=== PATIENT | female | born 1995 | race Caucasian/White ===

== ENCOUNTER 2017-01-28 14:43 | Emergency (ER) | payer MEDICAID ==
[~2017-01-28] VITALS: Ht 157.5 cm; Wt 78.4 kg
[2017-01-28 14:45] VITALS: BP 123/80
[2017-01-28] MEDS ORDERED: HYDROcodone/APAP 5/325 TABLET ONE (15:23)
[2017-01-28] MEDS ORDERED: HYDROcodone/APAP 5/325 TABLET PO ONE (15:30)
== END 2017-01-28 16:28 | disposition home or self-care (01) ==
LOC: ED 15:58
DX: S93.402A Sprain of unspecified ligament of left ankle, initial encounter (principal); S80.02XA Contusion of left knee, initial encounter; S20.212A Contusion of left front wall of thorax, initial encounter; J45.909 Unspecified asthma, uncomplicated; F12.10 Cannabis abuse, uncomplicated; W10.9XXA Fall (on) (from) unspecified stairs and steps, initial encounter; Y93.89 Activity, other specified; Y99.8 Other external cause status; Y92.89 Other specified places as the place of occurrence of the external cause
CPT/HCPCS: 29505

== ENCOUNTER 2017-09-25 21:41 | Emergency (ER) | payer MEDICAID ==
[~2017-09-25] VITALS: Ht 157.5 cm; Wt 82.7 kg
[2017-09-25] MEDS ORDERED: HYDROcodone/APAP 5/325 TABLET ONE (22:29)
[2017-09-25] MEDS: HYDROcodone/APAP 5/325 TABLET PO ONE (22:32)
[2017-09-25 22:51] VITALS: BP 127/79
== END 2017-09-25 22:54 | disposition home or self-care (01) ==
LOC: ED 22:31
DX: K08.89 Other specified disorders of teeth and supporting structures (principal)
CPT/HCPCS: 99283

== ENCOUNTER 2020-09-21 17:02 | Emergency (ER) | payer MEDICAID ==
[~2020-09-21] VITALS: Ht 154.9 cm; Wt 60.7 kg
[2020-09-21] MEDS ORDERED: LORazepam 2 MG/ML, 1ML IVPush PRN ×2 (17:30)
[2020-09-21 17:50] LABS: BASOPHILS % (AUTO) 1 % (0-1); EOSINOPHILS % (AUTO) 0 % (1-7); LYMPHOCYTES % (AUTO) 9 % (22-44); MEAN CORPUSCULAR HEMOGLOBIN 35.6 pg (27.0-34.8); MEAN CORPUSCULAR HGB CONC 34.4 g/dL (32.4-35.8); MEAN PLATELET VOLUME 8.7 fL (7.4-10.4); MONOCYTES % (AUTO) 8 % (2-9); NEUTROPHILS % (AUTO) 84 % (42-75); PLATELET COUNT 250 x10^3/uL (130-400); RED BLOOD COUNT 4.11 x10^6/uL (3.82-5.3); RED CELL DISTRIBUTION WIDTH 15.4 % (9.6-15.2)
[2020-09-21 17:51] LABS: MD NO
[2020-09-21] MEDS ORDERED: ONDANSETRON 2MG/ML, 2ML ONE (17:52)
[2020-09-21] MEDS ORDERED: LORazepam 2 MG/ML, 1ML ONE (17:52)
[2020-09-21 17:54] LABS: ALANINE AMINOTRANSFERASE 85 U/L (12-78); ALBUMIN 5.1 g/dL (3.4-5.0); ANION GAP 19 mmol/L (5-15); CALCIUM 9.3 mg/dL (8.5-10.1); CHLORIDE 88 mmol/L (98-107); CREATININE 2.23 mg/dL (0.55-1.02)
[2020-09-21 17:59] LABS: ALKALINE PHOSPHATASE 130 U/L (45-117); BILIRUBIN,TOTAL 1.7 mg/dL (0.2-1.0); TOTAL PROTEIN 10.3 g/dL (6.4-8.2)
[2020-09-21] MEDS ORDERED: THIAMINE 100 MG in SODIUM CHLORIDE 0.9% 50 ML IVPB ONE (18:00)
[2020-09-21] MEDS ORDERED: ONDANSETRON 2MG/ML, 2ML IVPush ONE (18:00)
[2020-09-21] MEDS ORDERED: SODIUM CHLORIDE 0.9% 1,000ML IVBOLUS ONE (18:00)
[2020-09-21] MEDS ORDERED: SODIUM CHLORIDE FLUSH 10ML SYR IVF ONE (18:30)
[2020-09-21 20:21] VITALS: BP 114/81
== END 2020-09-21 20:45 | disposition home or self-care (01) ==
LOC: ED 20:30
DX: R11.2 Nausea with vomiting, unspecified (principal); F10.139 Alcohol abuse with withdrawal, unspecified; R45.4 Irritability and anger; R00.0 Tachycardia, unspecified; R07.9 Chest pain, unspecified; F17.200 Nicotine dependence, unspecified, uncomplicated; J45.909 Unspecified asthma, uncomplicated; Y90.0 Blood alcohol level of less than 20 mg/100 ml
CPT/HCPCS: 36415; 71045; 80053; 80320; 83690; 84703; 85025; 93005; 96365; 96375; 99285; J2060; J2405; J3411; G0480

== ENCOUNTER 2020-12-22 12:02 | Emergency (ER) | payer MEDICAID ==
[~2020-12-22] VITALS: Ht 157.5 cm; Wt 71.0 kg
[2020-12-22 12:12] VITALS: BP 134/90
--- NOTE | 2020-12-22 12:45 | NUR ---
irrigator valve pipe completed, pt awaiting MD exam, and report given to SADIA Guillory with care transferred.
[2020-12-22] MEDS ORDERED: PROPARACAINE OPHTH 0.5%, 15ML ONE (12:51)
[2020-12-22] MEDS ORDERED: FLUORESCEIN OPHTHALMIC 1 MG STRIP ONE (12:51)
[2020-12-22] MEDS ORDERED: PROPARACAINE OPHTH 0.5%, 15ML EACHEYE ONE (13:00)
[2020-12-22] MEDS ORDERED: FLUORESCEIN OPHTHALMIC 1 MG STRIP EACHEYE ONE (13:00)
== END 2020-12-22 13:14 | disposition home or self-care (01) ==
LOC: ED 13:10
DX: H00.014 Hordeolum externum left upper eyelid (principal); H01.004 Unspecified blepharitis left upper eyelid; J45.909 Unspecified asthma, uncomplicated
CPT/HCPCS: 99283

== ENCOUNTER 2021-06-29 06:36 | Emergency (ER) | payer MEDICAID ==
[~2021-06-29] VITALS: Ht 154.9 cm; Wt 69.6 kg
--- NOTE | 2021-06-29 06:55 | NUR ---
assumed care of pt. report from Joceline MCCULLOUGH. pt here c/o swelling and pain to R side of face x2 days. pt has no difficulty breathing speaking or swallowing. no swelling to lips or tongue
[2021-06-29] MEDS ORDERED: KETOROLAC 30 MG/1 ML IVPush ONE (07:00)
[2021-06-29 07:18] LABS: BASOPHILS % (AUTO) 1 % (0-1); EOSINOPHILS % (AUTO) 2 % (1-7); LYMPHOCYTES % (AUTO) 24 % (22-44); MEAN CORPUSCULAR HEMOGLOBIN 29.6 pg (27.0-34.8); MEAN CORPUSCULAR HGB CONC 34.5 g/dL (32.4-35.8); MEAN PLATELET VOLUME 7.8 fL (7.4-10.4); MONOCYTES % (AUTO) 8 % (2-9); NEUTROPHILS % (AUTO) 65 % (42-75); PLATELET COUNT 341 x10^3/uL (130-400); RED BLOOD COUNT 4.16 x10^6/uL (3.82-5.3); RED CELL DISTRIBUTION WIDTH 12.1 % (9.6-15.2)
--- NOTE | 2021-06-29 07:20 | NUR ---
pt updated on POC, aware of pending CT scan, awaiting lab results
[2021-06-29 07:53] LABS: ALBUMIN 3.6 g/dL (3.4-5.0); ANION GAP 6 mmol/L (5-15); CHLORIDE 110 mmol/L (98-107); CREATININE 0.44 mg/dL (0.55-1.02)
[2021-06-29] MEDS ORDERED: KETOROLAC 30 MG/1 ML ONE (08:02)
--- NOTE | 2021-06-29 08:11 | NUR ---
pt has been medicated for pain and ice pack applied for comfort awaiting to go to CT scan
[2021-06-29 08:27] VITALS: BP 117/69
[2021-06-29] MEDS ORDERED: OMNIPAQUE 350 MG/ML, 75ML BOTTLE ONE (08:28)
--- NOTE | 2021-06-29 08:52 | NUR ---
awaiting CT results pt resting in position of comfort report to Korina MCCULLOUGH
--- NOTE | 2021-06-29 09:24 | NUR ---
ALL RESULTS BACK, PT FOR RECHECK.
[2021-06-29] MEDS ORDERED: AMOXICILLIN/CLAV 875-125MG TABLET PO ONE (10:00)
== END 2021-06-29 10:00 | disposition home or self-care (01) ==
LOC: ED 07:17
DX: K02.9 Dental caries, unspecified (principal); L03.211 Cellulitis of face; J45.909 Unspecified asthma, uncomplicated
CPT/HCPCS: 36415; 70487; 80048; 82040; 83880; 85025; 96374; 99285; J1885; Q9967